=== PATIENT | male | born 1945 | race Hispanic/Latino ===

== ENCOUNTER 2022-02-12 11:48 | Emergency (ER) | payer MEDICARE ==
[~2022-02-12] VITALS: Ht 160 cm; Wt 65.4 kg
[2022-02-12] MEDS ORDERED: NAPROXEN250 MG PO (12:13)
[2022-02-12] MEDS ORDERED: METFORMIN HCL500 M2 PO (12:13)
[2022-02-12] MEDS ORDERED: IRBESARTAN300 MG (12:13)
[2022-02-12] MEDS ORDERED: DEXAMETHASONE SOD PHOS INJ 4 MG/ML SDV IM ONE (12:30)
[2022-02-12] MEDS ORDERED: DEXAMETHASONE SOD PHOS INJ 4 MG/ML SDV ONE (12:52)
== END 2022-02-12 13:03 | disposition home or self-care (01) ==
LOC: FSED 12:14
DX: M54.40 Lumbago with sciatica, unspecified side (principal); I10 Essential (primary) hypertension; E11.9 Type 2 diabetes mellitus without complications; E78.5 Hyperlipidemia, unspecified; G89.29 Other chronic pain
CPT/HCPCS: 36415; 82948; 96372; 99283; J1100